=== PATIENT | male | born 1950 | race Caucasian/White ===

== ENCOUNTER 2018-03-01 07:04 | Day surgery (SDC) | payer OTHER, BC ==
[2018-03-01] MEDS ORDERED: SIMETHICONE 40 MG/0.6 ML ML ONE (07:31)
[2018-03-01] MEDS ORDERED: MEPERIDINE HCL/PF 100 MG/ML AMP ONE (07:32)
[2018-03-01] MEDS: MIDAZOLAM HCL 5 MG/5 ML VIAL ONE ×3 (09:25→09:45)
[2018-03-01 15:06] VITALS: BP_SYST 110
== END 2018-03-01 11:15 | disposition home or self-care (01) ==
LOC: SGI 07:04 → SMU 07:04 → SGI 11:15
PROVIDERS: ATTEND Internal Medicine Gastroenterology
DX: D12.2 Benign neoplasm of ascending colon (principal); D12.3 Benign neoplasm of transverse colon; D12.4 Benign neoplasm of descending colon; K57.90 Diverticulosis of intestine, part unspecified, without perforation or abscess without bleeding; K64.8 Other hemorrhoids; K21.0 Gastro-esophageal reflux disease with esophagitis; K44.9 Diaphragmatic hernia without obstruction or gangrene; K31.7 Polyp of stomach and duodenum; E11.9 Type 2 diabetes mellitus without complications; Z79.84 Long term (current) use of oral hypoglycemic drugs; E66.9 Obesity, unspecified; E78.5 Hyperlipidemia, unspecified; R19.4 Change in bowel habit; K29.50 Unspecified chronic gastritis without bleeding; Z86.010 Personal history of colon polyps
CPT/HCPCS: 43239; 43251; 45380; 45385; 82962; 88305; 88313; J2175; J2250; 45384

== ENCOUNTER 2021-03-04 07:21 | Day surgery (SDC) | payer OTHER, BC, SELFPAY ==
[~2021-03-04] VITALS: Ht 185.4 cm; Wt 89.4 kg
[2021-03-04] MEDS ORDERED: MEPERIDINE 100 MG INJ. 100 MG/ML VIAL ONE (08:19)
[2021-03-04] MEDS ORDERED: SIMETHICONE 40 MG/0.6 ML ML ONE (08:19)
[2021-03-04] MEDS ORDERED: MIDAZOLAM HCL 5 MG/5 ML VIAL ONE (08:19)
[2021-03-04 13:33] VITALS: BP_SYST 136
== END 2021-03-04 10:10 | disposition home or self-care (01) ==
LOC: SDS 07:21 → SMU 07:22 → SDS 10:10
PROVIDERS: ATTEND Internal Medicine Gastroenterology
DX: K22.2 Esophageal obstruction (principal); D50.9 Iron deficiency anemia, unspecified; K31.7 Polyp of stomach and duodenum; E11.9 Type 2 diabetes mellitus without complications; Z79.84 Long term (current) use of oral hypoglycemic drugs
CPT/HCPCS: 43235; 82962; 91110; 99152; G0378; J2175; J2250; U0003